=== PATIENT | female | born 1955 | race Caucasian/White ===

== ENCOUNTER 2018-02-06 14:58 | Outpatient (CLI) | payer OTHER ==
--- NOTE | 2018-02-06 17:14 | ULT ---
THYROID ULTRASOUND: 02/06/18 INDICATION: Hypothyroidism. FINDINGS: Right thyroid lobe length is 2.7 cm and left thyroid lobe length is 2.8 cm. The isthmus measures 1 mm in thickness. There is a solid echotexture nodule, subcentimeter, approximately 7 mm in size at the mid right thyro id lobe. There is a circumscribed hypoechoic oval focus which appears extrinsic to the lower pole of the right thyroid lobe, which measures 7 mm in length. IMPRESSION: Subcentimeter solid appearing, vague hypoechoic focus of the mid right thyroid lobe that may reflect a small, subcentimeter solid nodule. Nonspecific hypoechoic oval focus which may arise just external to the lower pole of the right thyroi d lobe, nonspecific. A followup ultrasound in six months would prove useful for continued evaluation of the above findings. POS: [facility]
== END 2018-02-06 14:59 | disposition home or self-care (01) ==
LOC: SCSULT 14:58
PROVIDERS: ATTEND Internal Medicine Geriatric Medicine
DX: E03.9 Hypothyroidism, unspecified (principal)
CPT/HCPCS: 76536

== ENCOUNTER 2018-08-20 13:57 | Outpatient (CLI) | payer OTHER ==
--- NOTE | 2018-08-20 14:45 | ULT ---
BILATERAL RENAL ULTRASOUND COMPLETE: HISTORY: Gross hematuria. FINDINGS: The right kidney measures 10 x 4.2 x 4.0 cm. The left kidney measures 9.8 x 4.5 x 4.2 cm. There is a poorly defined faint area of increased echogenicity within the region of the anterior blad jewel on the right side concerning for the possibility of a bladder mass. This measures approximately 1.8 x 1.9 x 3.5 cm. Consider further evaluation with CT urogram for further assessment. Bilateral u reteral jets are present. No significant postvoid residual. IMPRESSION: Very poorly defined faint abnormal density within the bladder suspicious for a bladder mass. Followu p CT urogram for further assessment. No renal hydronephrosis. CODE T
== END 2018-08-20 13:58 | disposition home or self-care (01) ==
LOC: SCSULT 13:57
PROVIDERS: ATTEND Internal Medicine Geriatric Medicine
DX: R31.9 Hematuria, unspecified (principal); R93.41 Abnormal radiologic findings on diagnostic imaging of renal pelvis, ureter, or bladder
CPT/HCPCS: 76770